=== PATIENT | female | born 1970 | race Caucasian/White ===

== ENCOUNTER 2022-02-24 22:11 | Emergency (ER) | payer BC, SELFPAY ==
[2022-02-24 22:14] VITALS: BP 151/98; PULSE 103; RESP 18; TEMP 36.8; O2SAT 99
--- NOTE | 2022-02-24 23:02 | ED.WOUNDLAC ---
HPI - Wound/Laceration General Chief Complaint: Wound/Laceration Stated Complaint: surgical site bleeding Time Seen by Provider: 02/24/22 22:33 Source: patient Mode of arrival: ambulatory Limitations: no limitations History of Present Illness HPI narrative: This is a 52-year-old female that presents to the emergency department for wound check. Reports she had an abdominal hysterectomy on 02-15-[address] Bisi Gonzalez at [facility]. Reports today she was changing her pants and the waist got caught on one of her incisions. Reports she has had some bleeding since. Denies fever, erythema, edema, or abnormal drainage. Related Data Allergies Allergy/AdvReac Type Severity Reaction Status Date / Time No Known Allergies Allergy Verified 02/24/22 22:16 Review of Systems Review of Systems: CONSTITUTIONAL: Denies fever GASTROINTESTINAL: Denies abdominal pain, nausea, vomiting All systems reviewed & are unremarkable except as noted in HPI and below PMFSH Surgical History Surgical History (Updated 02/24/22 @ 23:04 by Bisi Aviles PA-C) History of hysterectomy Family History Family History (Updated 12/29/16 @ 23:56 by DOCTOR UNKNOWN) Mother Patient's mother is in good health, Onset Age: 69 Sibling Patient's sister is in good health, Onset Age: 43 Father Family history of heart disease in male family member before age 55, Onset Age: 67 Patient's father is Social History Social History (Updated 02/24/22 @ 23:04 by Bisi Aviles PA-C) Substance use: never Exam Narrative: GENERAL: Well-appearing, well-nourished, and in no acute distress. HEAD: Normocephalic, atraumatic. EYES: EOMI. ABDOMEN: Soft, nontender, nondistended. Incision just above the umbilicus with 1cm area of wound dehiscence. No active bleeding. Otherwise all incisions are clean, dry and intact without surrounding erythema or any abnormal drainage EXTREMITIES: Normal range of motion. No edema. SKIN: Warm, dry, no rash. NEURO: No focal deficits. Alert and oriented x3. PSYCH: Normal mood and affect Course Consultations Consultation #1: Spoke with Dr. Gonzalez about patient and workup who will follow up in clinic Date: 02/24/22 Vital Signs Vital signs: Vital Signs Temperature 98.2 F 02/24/22 22:14 Pulse Rate 103 H 02/24/22 22:14 Respiratory Rate 18 02/24/22 22:14 Blood Pressure 151/98 H 02/24/22 22:14 Pulse Oximetry 99 02/24/22 22:14 Oxygen Delivery Room Air 02/24/22 22:14 Temperature 98.2 F 02/24/22 22:14 Pulse Rate 103 H 02/24/22 22:14 Respiratory Rate 18 02/24/22 22:14 Blood Pressure 151/98 H 02/24/22 22:14 Pulse Oximetry 99 02/24/22 22:14 Oxygen Delivery Room Air 02/24/22 22:14 MDM - Wound/Laceration MDM Narrative Medical decision making narrative: Patient presents to the emergency department for an area of wound dehiscence status post abdominal hysterectomy 9 days ago. There is a small area (1cm) of dehiscence of her wound above her umbilicus. She is afebrile and nontoxic-appearing. No signs of infection or active bleeding on exam currently. The wound was cleansed and covered with a bandage. 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 She was given warnings to return to the ER Critical Care Time Critical Care Time Critical Care Time: No Discharge Plan Discharge Clinical Impression: Abdominal wound dehiscence Patient Disposition: Home, Self-Care Condition: Stable Instructions: Wound Dehiscence (ED) Additional Instructions: Return to the ER if you experience fever, abdominal pain with nausea and vomiting, redness and swelling of your wound, abnormal drainage from the wound, or any other symptoms that are concerning to you You may let the water run over the wound in the shower. Change your bandage daily. Be sure to apply a nonstick bandage first Follow up with your asp net software developer Follow-up/Referrals: PHYSICIAN NOT ON STAFF
== END 2022-02-24 23:36 | disposition home or self-care (01) ==
PROVIDERS: Emergency Provider General Practice
DX: T81.30XA Disruption of wound, unspecified, initial encounter (principal); Z90.710 Acquired absence of both cervix and uterus
CPT/HCPCS: 99282

== ENCOUNTER 2022-11-15 11:16 | Emergency (ER) | payer BC, SELFPAY ==
--- NOTE | ~2022-11-15 | XR_ITS ---
Clinical Indication: Cough PA and lateral views of the chest: Comparison: None Findings: The lungs are clear, without evidence of focal consolidation or pleural effusion. Cardiome diastinal silhouette is within normal limits. Bones and soft tissues are unremarkable. Impression: Normal chest. Reviewed, dictated and finalized at location . [employer]ING SUPERVISOR Impression: Normal chest.
[2022-11-15 11:29] VITALS: BP 138/85; PULSE 111; RESP 14; TEMP 37.5; O2SAT 95
--- NOTE | 2022-11-15 11:41 | ED.URI ---
HPI - URI/Sore Throat General Chief Complaint: Upper Respiratory Infection Stated Complaint: uri Time Seen by Provider: 11/15/22 11:41 Source: patient and RN notes reviewed Mode of arrival: ambulatory Limitations: no limitations History of Present Illness HPI Narrative: 52-year-old female with a history of asthma presented for complaint of frequent severe cough and chest congestion with wheezing over the last 4 days. She also endorses sore throat, fever up to 101, diarrhea, shortness of breath with exertion. She denies Chest pain, palpitations, vomiting or lethargy. She denies known sick contacts. She has been taken Mucinex and Claritin for symptoms. She endorses taking Tylenol for rib pain last night. MD elicited complaint: cough Related Data Home Medications Medication Instructions Recorded Confirmed albuterol sulfate 90 mcg/actuation 2 puff inhalation QID PRN Dyspnea 11/15/22 11/15/22 aerosol inhaler estradiol 0.1 mg/24 hr semiweekly 1 patch transdermal DIRECTED 11/15/22 11/15/22 transdermal patch Allergies Allergy/AdvReac Type Severity Reaction Status Date / Time No Known Allergies Allergy Verified 11/15/22 11:19 Review of Systems Review of Systems: ROS per HPI [facility] Surgical History Surgical History History of hysterectomy Family History Family History Mother Patient's mother is in good health, Onset Age: 69 Sibling Patient's sister is in good health, Onset Age: 43 Father Family history of heart disease in male family member before age 55, Onset Age: 67 Patient's father is Social History Social History Substance use: never Exam Narrative: GENERAL: Ill-appearing, nontoxic EYES: PERRLA, conjunctivae clear ENT: Mucous membranes moist. TM pearly espana with dull light reflex bilaterally; no tragal tenderness. Oropharynx mildly erythematous without lesions or exudate NECK: Supple. No lymphadenopathy CHEST: lung sounds coarse, expiratory wheezes throughout. No respiratory distress, speaks in full sentences. HEART: Regular rate and rhythm. No murmur heard. SKIN: Warm, dry, no rash. NEURO: Alert and oriented x3. PSYCH: Normal mood and affect Course Course Emergency Course: Patient is aware of diagnosis, understands and agrees to treatment plan. Anticipatory guidance given. Patient agrees to follow-up as directed and is aware of reasons to seek care at the emergency department. Portions of this record may have been created with voice recognition software Level of Care: Express Care Visit Vital Signs Vital signs: Vital Signs Temperature 99.5 F 11/15/22 11:29 Pulse Rate 111 H 11/15/22 11:29 Respiratory Rate 14 11/15/22 11:29 Blood Pressure 138/85 11/15/22 11:29 Pulse Oximetry 95 11/15/22 11:29 Oxygen Delivery Room Air 11/15/22 11:29 Temperature 99.5 F 11/15/22 11:29 Pulse Rate 111 H 11/15/22 11:29 Respiratory Rate 14 11/15/22 11:29 Blood Pressure 138/85 11/15/22 11:29 Pulse Oximetry 95 11/15/22 11:29 Oxygen Delivery Room Air 11/15/22 11:29 reviewed MDM - URI/Sore Throat MDM Narrative Medical decision making narrative: results test reviewed with patient. chest x-ray result reviewed with patient. Advised supportive measures and signs/symptoms to go to the ER. Pt is appropriate for outpt treatment and f/u. Differential Diagnosis Differential diagnosis: Likely upper respiratory infection, sinusitis, viral infection, bronchitis, influenza and pharyngitis Lab Data Labs: Lab Results 11/15/22 Range/Units 11:35 POC SARS CoV-2 Ag Negative (Negative) Influenza A Screen Negative Reference Range: Negative Influenza B Screen Negative
== END 2022-11-15 13:05 | disposition home or self-care (01) ==
PROVIDERS: Emergency Provider Nurse Practitioner Family
DX: J40 Bronchitis, not specified as acute or chronic (principal); Z20.822 Contact with and (suspected) exposure to COVID-19
CPT/HCPCS: 71046; 87081; 87426; 87804; 87880; 99213; C9803; G0463